=== PATIENT | male | born 1945 | race Caucasian/White ===

== ENCOUNTER 2024-11-15 05:19 | Inpatient (IN) | payer OTHER ==
[2024-11-15] VITALS (10 sets, daily range): BP systolic 88–110; BP diastolic 48–68; PULSE 69–82; RESP 16–18; TEMP 97.7; O2SAT 94–96
[~2024-11-15] VITALS: Ht 165.1 cm; Wt 58.7 kg
[2024-11-15 05:54] LABS: BASOPHILS % (AUTO) 0.7 % (0-1); EOSINOPHILS # (AUTO) 0.2 X10'3 (0-0.9); EOSINOPHILS % (AUTO) 3.6 % (0-6); HEMATOCRIT 46.2 % (42.0-52.0); HEMOGLOBIN 15.7 g/dl (14.0-17.9); LYMPHOCYTES # (AUTO) 1.4 X10'3 (1.1-4.8); LYMPHOCYTES % (AUTO) 25.9 % (21-51); MEAN CORPUSCULAR HEMOGLOBIN 30.8 PG (27.0-31.0); MEAN CORPUSCULAR VOLUME 90.7 FL (78-98); MEAN PLATELET VOLUME 7.6 FL (7.4-10.4); MONOCYTES # (AUTO) 0.8 X10'3 (0-0.9); MONOCYTES % (AUTO) 14.5 % (2-12); NEUTROPHILS % (AUTO) 55.3 % (42-75); PLATELET COUNT 228 X10'3 (140-440); RED CELL DISTRIBUTION WIDTH 14.5 % (11.5-14.5); WHITE BLOOD COUNT 5.4 X10'3 (4.5-11.0)
[2024-11-15 06:09] LABS: ALANINE AMINOTRANSFERASE 21 U/L (12-78); ALBUMIN 3.3 G/DL (3.4-5.0); ALBUMIN/GLOBULIN RATIO 0.9 (1.1-1.5); ALKALINE PHOSPHATASE 56 IU/L (46-116); ANION GAP 6 (8-16); ASPARTATE AMINO TRANSFERASE 22 U/L (10-37); BILIRUBIN,TOTAL 0.4 MG/DL (0.1-1.0); BLOOD UREA NITROGEN 15 MG/DL (7-18); BUN/CREATININE RATIO 15.3 (10.0-20.0); CALCIUM 8.6 MG/DL (8.5-10.1); CHLORIDE 105 MMOL/L (99-107); CREATININE 0.98 MG/DL (0.60-1.10); GLUCOSE 98 MG/DL (70-104); POTASSIUM 3.6 MMOL/L (3.5-5.1); SODIUM 139 MMOL/L (135-145); TOTAL CARBON DIOXIDE 28.2 MMOL/L (24-32); eCRCL 52 ML/MIN; eGFR 74 ML/MIN
[2024-11-15 06:16] LABS: PRO BRAIN NATRIURETIC PEPTIDE 121 PG/ML (0-450)
[2024-11-15] MEDS: aspirin 81mg tab.chew PO ONE (07:16)
[2024-11-15] MEDS: nitroGLYCERIN 0.4mg/hour patch TD ONE (07:17)
[2024-11-15] MEDS ORDERED: ondansetron/PF 4mg/2ml inj IV PRN (07:30)
[2024-11-15] MEDS ORDERED: magnesium sulf-water 4G/100mL 100 ML IV PRN (07:30)
[2024-11-15] MEDS ORDERED: potassium Cl 40MEQ/1/2NS 520ml 520 ML IV PRN (07:30)
[2024-11-15] MEDS ORDERED: potassium Cl 20 mEq SR tablet PO PRN ×2 (07:30)
[2024-11-15] MEDS ORDERED: magnesium Cl slow-release 64mg tablet PO PRN (07:30)
[2024-11-15] MEDS ORDERED: mag hydrox/Alum hydrox/simeth 30ml oral suspension PO PRN (07:30)
[2024-11-15] MEDS ORDERED: magnesium sulf-water 2g/50mL 50 ML IV PRN (07:30)
[2024-11-15] MEDS ORDERED: magnesium hydroxide 30ml (MOM) UD suspension PO PRN (07:30)
[2024-11-15] MEDS ORDERED: NO HOME MEDS (07:56)
[2024-11-15] MEDS: K and/or MAG REPLACEMENT MC SCH (08:00)
[2024-11-15] MEDS ORDERED: metoprolol tartrate 1mg/ml inj IV PRN (09:45)
[2024-11-15] MEDS ORDERED: nitroGLYCERIN 0.4mg SUBLingual tab SL PRN (09:45)
[2024-11-15] MEDS ORDERED: aminophylline 250mg/10ml inj. IV PRN (09:45)
[2024-11-15 11:16] LABS: HEMOGLOBIN A1C 5.3 % (4.5-6.2)
[2024-11-15] MEDS ORDERED: aminophylline 500mg/20ml vial IV PRN (11:28)
[2024-11-15] MEDS ORDERED: aminophylline 500mg/20ml vial ONE (11:29)
[2024-11-15] MEDS: regadenoson 0.4mg/5ml syringe IV PRN (11:42)
[2024-11-15] MEDS: acetaminophen 325mg tablet PO PRN (21:50)
[2024-11-16] VITALS (16 sets, daily range): BP systolic 117–137; BP diastolic 65–79; PULSE 60–75; RESP 12–18; TEMP 97.2–99.3; O2SAT 94–99
[2024-11-16 06:38] LABS: BASOPHILS % (AUTO) 0.7 % (0-1); EOSINOPHILS # (AUTO) 0.2 X10'3 (0-0.9); EOSINOPHILS % (AUTO) 4.7 % (0-6); HEMATOCRIT 44.6 % (42.0-52.0); LYMPHOCYTES # (AUTO) 1.2 X10'3 (1.1-4.8); MEAN CORPUSCULAR HEMOGLOBIN 30.5 PG (27.0-31.0); MEAN CORPUSCULAR HGB CONC 33.7 g/dL (33.0-36.5); MEAN CORPUSCULAR VOLUME 90.7 FL (78-98); MEAN PLATELET VOLUME 7.7 FL (7.4-10.4); MONOCYTES # (AUTO) 0.7 X10'3 (0-0.9); MONOCYTES % (AUTO) 13.8 % (2-12); NEUTROPHILS # (AUTO) 2.7 X10'3 (1.8-7.7); NEUTROPHILS % (AUTO) 56.8 % (42-75); PLATELET COUNT 220 X10'3 (140-440); RED BLOOD COUNT 4.92 X10'6 (4.70-6.10); WHITE BLOOD COUNT 4.8 X10'3 (4.5-11.0)
[2024-11-16 06:47] LABS: D-DIMER 0.88 MG/L FEU (0-0.50)
[2024-11-16 07:00] LABS: ALBUMIN 3.1 G/DL (3.4-5.0); ANION GAP 6 (8-16); BLOOD UREA NITROGEN 14 MG/DL (7-18); BUN/CREATININE RATIO 17.3 (10.0-20.0); CALCIUM 8.5 MG/DL (8.5-10.1); CHLORIDE 108 MMOL/L (99-107); CHOL/HDL RATIO 3.7 (0.00-4.99); CHOLESTEROL 157 MG/DL (0-200); CREATININE 0.81 MG/DL (0.60-1.10); GLUCOSE 95 MG/DL (70-104); HDL CHOLESTEROL 43 MG/DL (35-60); LDL CHOLESTEROL 101 MG/DL (50-100); POTASSIUM 4.2 MMOL/L (3.5-5.1); SODIUM 142 MMOL/L (135-145); TOTAL CARBON DIOXIDE 27.8 MMOL/L (24-32); TRIGLYCERIDES 59 MG/DL (20-135); eCRCL 63 ML/MIN; eGFR > 90 ML/MIN
[2024-11-16] MEDS: furosemide 20 MG/2 ML vial IV ONE (09:18)
[2024-11-16] MEDS ORDERED: midazolam 1 mg/ML 2ml injection ONE (15:33)
[2024-11-16] MEDS ORDERED: iohexol 350MG/ML 100ml bottle IV ONE (15:34)
[2024-11-16] MEDS ORDERED: heparin 1,000unit/ml 10ml vial 10 ML ONE (15:34)
[2024-11-16] MEDS ORDERED: verapamil 2.5 mg/ml inj IV ONE (15:34)
[2024-11-16] MEDS ORDERED: LIDOcaine 1% (10mg/ml) 2ml vial ONE (15:34)
[2024-11-16] MEDS ORDERED: fentaNYL/PF 50MCG/1 ML 2ML syringe ONE (15:34)
[2024-11-16] MEDS ORDERED: nitroGLYCERIN 500mcg/5mL D5W 5 ML IV ONE (15:35)
[2024-11-17] VITALS (11 sets, daily range): BP systolic 113–128; BP diastolic 60–78; PULSE 62–86; RESP 10–18; TEMP 97–98.1; O2SAT 0–100
[2024-11-17 06:50] LABS: ANION GAP 6 (8-16); BLOOD UREA NITROGEN 13 MG/DL (7-18); BUN/CREATININE RATIO 14.4 (10.0-20.0); CALCIUM 8.4 MG/DL (8.5-10.1); CHLORIDE 108 MMOL/L (99-107); GLUCOSE 92 MG/DL (70-104); POTASSIUM 3.9 MMOL/L (3.5-5.1); SODIUM 143 MMOL/L (135-145); TOTAL CARBON DIOXIDE 29.1 MMOL/L (24-32); eCRCL 57 ML/MIN; eGFR 82 ML/MIN
[2024-11-17 07:11] LABS: BASOPHILS % (AUTO) 0.6 % (0-1); EOSINOPHILS # (AUTO) 0.2 X10'3 (0-0.9); HEMATOCRIT 43.9 % (42.0-52.0); HEMOGLOBIN 14.8 g/dl (14.0-17.9); LYMPHOCYTES # (AUTO) 1.1 X10'3 (1.1-4.8); LYMPHOCYTES % (AUTO) 23.6 % (21-51); MEAN CORPUSCULAR HEMOGLOBIN 30.7 PG (27.0-31.0); MEAN CORPUSCULAR HGB CONC 33.8 g/dL (33.0-36.5); MEAN CORPUSCULAR VOLUME 90.7 FL (78-98); MEAN PLATELET VOLUME 7.9 FL (7.4-10.4); MONOCYTES # (AUTO) 0.6 X10'3 (0-0.9); MONOCYTES % (AUTO) 12.5 % (2-12); NEUTROPHILS # (AUTO) 2.6 X10'3 (1.8-7.7); NEUTROPHILS % (AUTO) 58.3 % (42-75); PLATELET COUNT 227 X10'3 (140-440); RED BLOOD COUNT 4.84 X10'6 (4.70-6.10); RED CELL DISTRIBUTION WIDTH 14.4 % (11.5-14.5); WHITE BLOOD COUNT 4.5 X10'3 (4.5-11.0)
[2024-11-17] MEDS ORDERED: insulin glargine (Lantus) pen - multi-dose SQ PRN (07:25)
[2024-11-17] MEDS ORDERED: Insulin Reg/NS 100units/100mL 100 ML IV SCH ×2 (07:25→07:29)
[2024-11-17] MEDS: MESSAGE TO PHARMACY IJ ONE (07:25)
[2024-11-17] MEDS ORDERED: dextrose 50%-water 50ml dispensing syringe IV PRN (07:25)
[2024-11-17] MEDS ORDERED: VANCOMYCIN 1GM 200ML H20 (PEG) 200 ML IV ONE (07:25)
[2024-11-17] MEDS: cefazolin 2gm/D5W 100mL 100 ML IV ONE (07:25)
[2024-11-17 08:10] LABS: APTT 29 SECONDS (22-32); INR 1.1 INR; PROTHROMBIN TIME 11.1 SECONDS (9.0-12.0)
[2024-11-17] MEDS: furosemide 20 MG/2 ML vial IV SCH (09:17)
[2024-11-17 12:40] LABS: ABG HCO3 20.2 mmol/L (21.0-28.0); ABG OXYGEN SATURATION 98.5 % (94.0-98.0); ABG PCO2 (T) 26.2 mmHg (35.0-48.0); ABG PH (T) 7.505 (7.350-7.450); ABG PO2 (T) 125.8 mmHg (83.0-108.0); ALLEN'S TEST POSITIVE; FCOHb 0.3 % (0.5-1.5); FHHb 1.5 % (0.0-5.0); FMetHb 0.1 % (0.0-1.5); FO2Hb 98.1 % (94.0-98.0); MODE ROOM AIR; TOTAL HEMOGLOBIN 16.4 G/dl (13.5-17.5)
[2024-11-17] MEDS: tamsulosin 0.4mg capsule PO SCH (20:07)
[2024-11-18] VITALS (25 sets, daily range): BP systolic 78–136; BP diastolic 48–73; PULSE 69–104; RESP 11–30; TEMP 96.3–97.8; O2SAT 97–100
[2024-11-18] MEDS: dextrose 5%-lactated ringers 1,000 ML IV SCH (00:21)
[2024-11-18] MEDS ORDERED: ceFAZolin 1000mg inj ONE (06:51)
[2024-11-18] MEDS ORDERED: vancomycin 1,000mg inj ONE (06:51)
[2024-11-18] MEDS ORDERED: epiNEPHrine 1 mg/ml inj ONE (06:51)
[2024-11-18 07:28] LABS: BASOPHILS % (AUTO) 0.5 % (0-1); EOSINOPHILS # (AUTO) 0.2 X10'3 (0-0.9); EOSINOPHILS % (AUTO) 4.6 % (0-6); HEMATOCRIT 44.6 % (42.0-52.0); LYMPHOCYTES # (AUTO) 1.3 X10'3 (1.1-4.8); LYMPHOCYTES % (AUTO) 26.5 % (21-51); MEAN CORPUSCULAR HEMOGLOBIN 30.7 PG (27.0-31.0); MEAN CORPUSCULAR HGB CONC 33.7 g/dL (33.0-36.5); MEAN PLATELET VOLUME 7.9 FL (7.4-10.4); MONOCYTES # (AUTO) 0.6 X10'3 (0-0.9); MONOCYTES % (AUTO) 11.4 % (2-12); NEUTROPHILS # (AUTO) 2.8 X10'3 (1.8-7.7); PLATELET COUNT 213 X10'3 (140-440); RED CELL DISTRIBUTION WIDTH 14.6 % (11.5-14.5)
[2024-11-18 07:56] LABS: ANION GAP 7 (8-16); BLOOD UREA NITROGEN 12 MG/DL (7-18); CALCIUM 8.3 MG/DL (8.5-10.1); CHLORIDE 106 MMOL/L (99-107); GLUCOSE 106 MG/DL (70-104); POTASSIUM 3.7 MMOL/L (3.5-5.1); SODIUM 140 MMOL/L (135-145); TOTAL CARBON DIOXIDE 27.1 MMOL/L (24-32); eCRCL 61 ML/MIN; eGFR > 90 ML/MIN
[2024-11-18] MEDS: mupirocin 2% ointment 22GM NS SCH (10:03)
[2024-11-18] MEDS: famotidine 20mg tablet PO ONE (10:03)
[2024-11-18] MEDS: gabapentin 400mg capsule PO ONE (10:04)
[2024-11-18] MEDS ORDERED: MIDAZolam 1 MG/ML 5ML VIAL ONE (12:23)
[2024-11-18] MEDS ORDERED: SUfentanil 50mcg/ml 1ml amp IV ONE (12:23)
[2024-11-18] MEDS ORDERED: propofol inj 20 ML IV ONE (12:25)
[2024-11-18] MEDS ORDERED: rocuronium 10mg/ml inj IV ONE (12:26)
[2024-11-18] MEDS: LORazepam 2 mg/ml vial IV ONE (12:30)
[2024-11-18] MEDS ORDERED: sevoflurane 250ml liquid IH ONE (12:33)
[2024-11-18 13:13] LABS: ABG BASE EXCESS -0.3 mmol/L (-2.0-3.0); ABG HCO3 22.6 mmol/L (21.0-28.0); ABG OXYGEN SATURATION 99.4 % (94.0-98.0); ABG PCO2 32.1 mmHg (35.0-48.0); ABG PH 7.465 (7.350-7.450); ABG PO2 281.3 mmHg (83.0-108.0); CL (ABG) 105 mmol/L (98-107); FHHb 0.6 % (0.0-5.0); FMetHb 0.1 % (0.0-1.5); FO2Hb 99.3 % (94.0-98.0); GLUCOSE (ABG) 94 mg/dl (65-95); IONIZED CA (ABG) 1.15 mmol/L (1.15-1.33); TOTAL HEMOGLOBIN 13.9 G/dl (13.5-17.5)
[2024-11-18 13:28] LABS: ABG BASE EXCESS VENOUS -0.7 mmol/L (-2.0-3.0); ABG HCO3 VENOUS 24.5 mmol/L (22.0-29.0); ABG OXYGEN SATURATION VENOUS 89.2 % (60.0-85.0); ABG PCO2 VENOUS 42.1 mmHg (38.0-54.0); ABG PH (VENOUS) 7.382 (7.320-7.430); ABG PO2 VENOUS 52.2 mmHg (23.0-48.0); CL (ABG) 105 mmol/L (98-107); FCOHb VENOUS 0.4 % (0.5-1.5); FHHb VENOUS 10.8 %; FO2Hb VENOUS 88.8 % (0-80.0); GLUCOSE (ABG) 96 mg/dl (65-95); IONIZED CA (ABG) 1.12 mmol/L (1.15-1.33); K (ABG) 3.9 mmol/L (3.40-4.50); TOTAL HEMOGLOBIN 13.1 G/dl (13.5-17.5)
[2024-11-18 13:44] LABS: ABG BASE EXCESS 0.2 mmol/L (-2.0-3.0); ABG HCO3 22.7 mmol/L (21.0-28.0); ABG PCO2 29.2 mmHg (35.0-48.0); ABG PH 7.508 (7.350-7.450); ABG PO2 248.9 mmHg (83.0-108.0); CL (ABG) 103 mmol/L (98-107); FCOHb 0.3 % (0.5-1.5); FMetHb 0.3 % (0.0-1.5); FO2Hb 98.4 % (94.0-98.0); GLUCOSE (ABG) 90 mg/dl (65-95); IONIZED CA (ABG) 1.01 mmol/L (1.15-1.33); K (ABG) 5.6 mmol/L (3.40-4.50); TOTAL HEMOGLOBIN 9.8 G/dl (13.5-17.5)
[2024-11-18 13:48] LABS: ABG BASE EXCESS VENOUS 0.3 mmol/L (-2.0-3.0); ABG HCO3 VENOUS 23.5 mmol/L (22.0-29.0); ABG OXYGEN SATURATION VENOUS 84.1 % (60.0-85.0); ABG PCO2 VENOUS 32.8 mmHg (38.0-54.0); ABG PH (VENOUS) 7.473 (7.320-7.430); ABG PO2 VENOUS 40.8 mmHg (23.0-48.0); CL (ABG) 102 mmol/L (98-107); FCOHb VENOUS 0.1 % (0.5-1.5); FHHb VENOUS 15.8 %; FMetHb VENOUS 0.3 % (0.5-1.5); FO2Hb VENOUS 83.8 % (0-80.0); GLUCOSE (ABG) 97 mg/dl (65-95); IONIZED CA (ABG) 1.03 mmol/L (1.15-1.33); K (ABG) 5.3 mmol/L (3.40-4.50); TOTAL HEMOGLOBIN 10.2 G/dl (13.5-17.5)
[2024-11-18] MEDS: ceFAZolin 1000mg inj IR ONE (14:04)
[2024-11-18] MEDS ORDERED: albumin (Human) 5% 250ml 250 ML IV ONE ×2 (14:30→14:56)
[2024-11-18 14:39] LABS: ABG HCO3 VENOUS 24.2 mmol/L (22.0-29.0); ABG OXYGEN SATURATION VENOUS 87.3 % (60.0-85.0); ABG PCO2 VENOUS 37.6 mmHg (38.0-54.0); ABG PH (VENOUS) 7.427 (7.320-7.430); CL (ABG) 104 mmol/L (98-107); FCOHb VENOUS 0.3 % (0.5-1.5); FHHb VENOUS 12.6 %; FMetHb VENOUS 0.3 % (0.5-1.5); FO2Hb VENOUS 86.8 % (0-80.0); GLUCOSE (ABG) 114 mg/dl (65-95); K (ABG) 4.6 mmol/L (3.40-4.50); TOTAL HEMOGLOBIN 10.4 G/dl (13.5-17.5)
[2024-11-18 14:42] LABS: ACTIVATED CLOTTING TIME 122 SEC (101-148)
[2024-11-18] MEDS: MESSAGE TO NURSING PO ONE ×5 (14:42)
[2024-11-18] MEDS: ceFAZolin 2gm in dextrose, iso 50 ML IV ONE ×2 (14:45→14:46)
[2024-11-18] MEDS: vancomycin/NS 1 GM ADD-VANTAGE 250 ML IV ONE ×2 (14:45→14:46)
[2024-11-18] MEDS ORDERED: gelatin sponge, absorbable (Gelfoam 100) sponge TP ONE (15:04)
[2024-11-18 15:07] LABS: BASOPHILS % (AUTO) 0.1 % (0-1); EOSINOPHILS # (AUTO) 0.2 X10'3 (0-0.9); HEMATOCRIT 31.3 % (42.0-52.0); HEMOGLOBIN 10.5 g/dl (14.0-17.9); LYMPHOCYTES # (AUTO) 1.5 X10'3 (1.1-4.8); LYMPHOCYTES % (AUTO) 18.8 % (21-51); MEAN CORPUSCULAR HEMOGLOBIN 30.5 PG (27.0-31.0); MEAN CORPUSCULAR HGB CONC 33.6 g/dL (33.0-36.5); MEAN CORPUSCULAR VOLUME 90.9 FL (78-98); MEAN PLATELET VOLUME 7.5 FL (7.4-10.4); MONOCYTES # (AUTO) 0.2 X10'3 (0-0.9); MONOCYTES % (AUTO) 2.7 % (2-12); NEUTROPHILS % (AUTO) 76.4 % (42-75); RED BLOOD COUNT 3.44 X10'6 (4.70-6.10); RED CELL DISTRIBUTION WIDTH 14.4 % (11.5-14.5); WHITE BLOOD COUNT 7.8 X10'3 (4.5-11.0)
[2024-11-18] MEDS ORDERED: metoclopramide 5 mg/ml inj IV PRN (15:15)
[2024-11-18] MEDS ORDERED: sodium phosphate inj. 30 MMOL in dextrose 5%-water 250 ML IV PRN (15:15)
[2024-11-18] MEDS ORDERED: potassium Cl 20 mEq SR tablet PO PRN (15:15)
[2024-11-18] MEDS ORDERED: niCARDipine-NS 40mg/200ml IVPB 200 ML IV PRN (15:15)
[2024-11-18] MEDS ORDERED: potassium CL 10mEq/100ml bag 100 ML IV PRN (15:15)
[2024-11-18] MEDS ORDERED: ondansetron/PF 4mg/2ml inj IV PRN (15:15)
[2024-11-18] MEDS ORDERED: potassium Cl 40MEQ/270ML bag 250 ML IV PRN (15:15)
[2024-11-18] MEDS ORDERED: potassium Cl 40MEQ/1/2NS 520ml 520 ML IV PRN (15:15)
[2024-11-18] MEDS ORDERED: insulin glargine (Lantus) pen - multi-dose SQ PRN (15:15)
[2024-11-18] MEDS ORDERED: mineral oil 133ml enema RC PRN (15:15)
[2024-11-18] MEDS ORDERED: acetaminophen 325mg tablet PO PRN (15:15)
[2024-11-18] MEDS ORDERED: bisacodyl 10mg suppository rectal RC PRN (15:15)
[2024-11-18] MEDS ORDERED: magnesium sulf-water 4G/100mL 100 ML IV PRN (15:15)
[2024-11-18] MEDS ORDERED: dextrose 50%-water 50ml dispensing syringe IV PRN (15:15)
[2024-11-18 15:18] LABS: PLATELET COUNT 27 X10'3 (140-440)
[2024-11-18 15:26] LABS: APTT 43 SECONDS (22-32); FIBRINOGEN 181 MG/DL (177-424)
[2024-11-18] MEDS: albumin (Human) 5% 250ml 250 ML IV PRN (15:30)
[2024-11-18 15:52] LABS: ABG BASE EXCESS -2.9 mmol/L (-2.0-3.0); ABG HCO3 20.5 mmol/L (21.0-28.0); ABG OXYGEN SATURATION 99.6 % (94.0-98.0); ABG PCO2 (T) 30.2 mmHg (35.0-48.0); ABG PH (T) 7.444 (7.350-7.450); ABG PO2 (T) 234.6 mmHg (83.0-108.0); FCOHb 0.4 % (0.5-1.5); FHHb 0.4 % (0.0-5.0); FLOW 45 L/min; FMetHb 0.3 % (0.0-1.5); FO2Hb 98.9 % (94.0-98.0); MODE VENT - SIMV; PATIENT TEMPERATURE 35.9; PEEP 5 cm H2O; RESPIRATORY RATE 12 b/min; TOTAL HEMOGLOBIN 13.3 G/dl (13.5-17.5)
[2024-11-18 15:56] LABS: INR 1.5 INR; PROTHROMBIN TIME 14.8 SECONDS (9.0-12.0)
[2024-11-18 16:01] LABS: ALANINE AMINOTRANSFERASE 11 U/L (12-78); ALBUMIN 3.1 G/DL (3.4-5.0); ALBUMIN/GLOBULIN RATIO 1.8 (1.1-1.5); ALKALINE PHOSPHATASE 27 IU/L (46-116); ANION GAP 11 (8-16); ASPARTATE AMINO TRANSFERASE 33 U/L (10-37); BILIRUBIN,TOTAL 0.9 MG/DL (0.1-1.0); BLOOD UREA NITROGEN 8 MG/DL (7-18); BUN/CREATININE RATIO 15.7 (10.0-20.0); CALCIUM 7.9 MG/DL (8.5-10.1); CHLORIDE 108 MMOL/L (99-107); CREATININE 0.51 MG/DL (0.60-1.10); GLUCOSE 125 MG/DL (70-104); MAGNESIUM 3.3 MG/DL (1.5-2.4); PHOSPHORUS 1.6 MG/DL (2.3-4.5); SODIUM 141 MMOL/L (135-145); TOTAL CARBON DIOXIDE 21.7 MMOL/L (24-32); TOTAL PROTEIN 4.8 G/DL (6.4-8.2); eCRCL 96 ML/MIN; eGFR > 90 ML/MIN
[2024-11-18 16:07] LABS: POTASSIUM 4.3 MMOL/L (3.5-5.1)
[2024-11-18] MEDS: Insulin Reg/NS 100units/100mL 100 ML IV SCH (16:17)
[2024-11-18] MEDS: sodium chloride 0.45% 1,000 ML IV SCH (16:23)
[2024-11-18] MEDS: potassium Cl 20mEq/100mL bag 100 ML IV PRN (16:37)
[2024-11-18] MEDS: ceFAZolin/D5W- 1GM premix 50 ML IV SCH (17:05)
[2024-11-18] MEDS: morphine 4 MG/ML inj SYRINge IV PRN (17:22)
[2024-11-18] MEDS: sodium phosphate inj. 15 MMOL in dextrose 5%-water 250 ML IV PRN (17:43)
[2024-11-18] MEDS ORDERED: VANCOMYCIN 1GM 200ML H20 (PEG) 200 ML IV SCH (20:00)
[2024-11-18] MEDS: sennosides/docusate sodium tablet PO SCH (20:00)
[2024-11-18] MEDS: NORepinephrine 8mg/ 250ml NS 250 ML IV PRN (20:43)
[2024-11-18] MEDS: atorvastatin 10mg tablet PO SCH (21:00)
[2024-11-18] MEDS: mupirocin 2% nasal ointment 1gm UD NS SCH (22:14)
[2024-11-18] MEDS: vancomycin/NS 1 GM ADD-VANTAGE 250 ML IV SCH (22:14)
[2024-11-18 22:41] LABS: BASOPHILS % (AUTO) 0.1 % (0-1); EOSINOPHILS % (AUTO) 0.1 % (0-6); HEMATOCRIT 28.8 % (42.0-52.0); HEMOGLOBIN 9.9 g/dl (14.0-17.9); LYMPHOCYTES # (AUTO) 0.2 X10'3 (1.1-4.8); LYMPHOCYTES % (AUTO) 2.2 % (21-51); MEAN CORPUSCULAR HGB CONC 34.4 g/dL (33.0-36.5); MEAN CORPUSCULAR VOLUME 90.3 FL (78-98); MEAN PLATELET VOLUME 7.4 FL (7.4-10.4); MONOCYTES # (AUTO) 0.4 X10'3 (0-0.9); MONOCYTES % (AUTO) 3.7 % (2-12); NEUTROPHILS % (AUTO) 93.9 % (42-75); PLATELET COUNT 163 X10'3 (140-440); RED BLOOD COUNT 3.19 X10'6 (4.70-6.10); RED CELL DISTRIBUTION WIDTH 14.5 % (11.5-14.5); WHITE BLOOD COUNT 9.6 X10'3 (4.5-11.0)
[2024-11-18 23:51] LABS: ANION GAP 12 (8-16); BLOOD UREA NITROGEN 10 MG/DL (7-18); BUN/CREATININE RATIO 10.9 (10.0-20.0); CALCIUM 7.6 MG/DL (8.5-10.1); CHLORIDE 109 MMOL/L (99-107); CREATININE 0.92 MG/DL (0.60-1.10); GLUCOSE 135 MG/DL (70-104); MAGNESIUM 2.5 MG/DL (1.5-2.4); PHOSPHORUS 2.3 MG/DL (2.3-4.5); POTASSIUM 3.8 MMOL/L (3.5-5.1); SODIUM 144 MMOL/L (135-145); TOTAL CARBON DIOXIDE 22.6 MMOL/L (24-32); eCRCL 53 ML/MIN; eGFR 80 ML/MIN
[2024-11-19] VITALS (25 sets, daily range): BP systolic 102–140; BP diastolic 58–70; PULSE 77–93; RESP 12–24; O2SAT 85–100
[2024-11-19 00:30] LABS: ABG BASE EXCESS -2.8 mmol/L (-2.0-3.0); ABG HCO3 21.5 mmol/L (21.0-28.0); ABG OXYGEN SATURATION 98.2 % (94.0-98.0); ABG PCO2 (T) 35.2 mmHg (35.0-48.0); ABG PH (T) 7.403 (7.350-7.450); ABG PO2 (T) 109.5 mmHg (83.0-108.0); FCOHb 0.1 % (0.5-1.5); FHHb 1.8 % (0.0-5.0); FMetHb 0.3 % (0.0-1.5); FO2Hb 97.8 % (94.0-98.0); MODE VENT - CPAP; PATIENT TEMPERATURE 36.8; PEEP 5 cm H2O; TOTAL HEMOGLOBIN 10.4 G/dl (13.5-17.5)
[2024-11-19] MEDS: morphine 2 MG/ML inj. syringe IV PRN (00:56)
[2024-11-19 04:42] LABS: BASOPHILS % (AUTO) 0 % (0-1); EOSINOPHILS % (AUTO) 0.1 % (0-6); HEMATOCRIT 28.5 % (42.0-52.0); HEMOGLOBIN 9.7 g/dl (14.0-17.9); LYMPHOCYTES # (AUTO) 0.3 X10'3 (1.1-4.8); LYMPHOCYTES % (AUTO) 2.5 % (21-51); MEAN CORPUSCULAR HEMOGLOBIN 30.9 PG (27.0-31.0); MEAN CORPUSCULAR HGB CONC 34.1 g/dL (33.0-36.5); MEAN CORPUSCULAR VOLUME 90.7 FL (78-98); MEAN PLATELET VOLUME 7.5 FL (7.4-10.4); MONOCYTES # (AUTO) 0.4 X10'3 (0-0.9); MONOCYTES % (AUTO) 3.6 % (2-12); NEUTROPHILS # (AUTO) 10.1 X10'3 (1.8-7.7); NEUTROPHILS % (AUTO) 93.8 % (42-75); PLATELET COUNT 171 X10'3 (140-440); RED BLOOD COUNT 3.14 X10'6 (4.70-6.10); WHITE BLOOD COUNT 10.7 X10'3 (4.5-11.0)
[2024-11-19 04:53] LABS: ALANINE AMINOTRANSFERASE 23 U/L (12-78); ALBUMIN 3.9 G/DL (3.4-5.0); ALBUMIN/GLOBULIN RATIO 2.3 (1.1-1.5); ALKALINE PHOSPHATASE 25 IU/L (46-116); ANION GAP 3 (8-16); ASPARTATE AMINO TRANSFERASE 44 U/L (10-37); BILIRUBIN,TOTAL 0.5 MG/DL (0.1-1.0); BLOOD UREA NITROGEN 10 MG/DL (7-18); BUN/CREATININE RATIO 13.2 (10.0-20.0); CALCIUM 7.6 MG/DL (8.5-10.1); CHLORIDE 114 MMOL/L (99-107); CREATININE 0.76 MG/DL (0.60-1.10); GLUCOSE 106 MG/DL (70-104); MAGNESIUM 2.5 MG/DL (1.5-2.4); PHOSPHORUS 2.9 MG/DL (2.3-4.5); POTASSIUM 4.7 MMOL/L (3.5-5.1); SODIUM 144 MMOL/L (135-145); TOTAL CARBON DIOXIDE 26.7 MMOL/L (24-32); TOTAL PROTEIN 5.6 G/DL (6.4-8.2); eCRCL 64 ML/MIN; eGFR > 90 ML/MIN
[2024-11-19] MEDS: metoprolol tartrate 12.5mg (1/2 tablet) PO SCH (08:00)
[2024-11-19] MEDS: aspirin 81mg tab.chew PO SCH (08:38)
[2024-11-19] MEDS ORDERED: DEXTROSE 15 GM of carb/4 tabs (each vial/BOTTLE has 4 tablets) PO PRN ×2 (12:25)
[2024-11-19] MEDS ORDERED: dextrose 50%-water 50ml dispensing syringe IV PRN ×2 (12:25)
[2024-11-19] MEDS ORDERED: glucagon, human recombinant 1mg kit SUBCUT PRN (12:25)
[2024-11-19] MEDS: acetaminophen 325mg tablet PO PRN (17:18)
[2024-11-19] MEDS: INSULIN LISPRO 100 UNIT/ML INSULN.PEN MULTI-DOSE SQ SCH (18:41)
[2024-11-19] MEDS: HYDROcodone/acetaminophen 10/325mg tab PO PRN (20:04)
[2024-11-20] VITALS (22 sets, daily range): BP systolic 104–131; BP diastolic 55–76; PULSE 66–85; RESP 12–18; TEMP 97.6; O2SAT 93–98
[2024-11-20 02:53] LABS: BASOPHILS % (AUTO) 0.1 % (0-1); EOSINOPHILS % (AUTO) 0 % (0-6); HEMATOCRIT 27.5 % (42.0-52.0); HEMOGLOBIN 9.2 g/dl (14.0-17.9); LYMPHOCYTES # (AUTO) 0.7 X10'3 (1.1-4.8); LYMPHOCYTES % (AUTO) 4.2 % (21-51); MEAN CORPUSCULAR HEMOGLOBIN 30.6 PG (27.0-31.0); MEAN CORPUSCULAR HGB CONC 33.4 g/dL (33.0-36.5); MEAN CORPUSCULAR VOLUME 91.4 FL (78-98); MEAN PLATELET VOLUME 7.7 FL (7.4-10.4); MONOCYTES % (AUTO) 6.5 % (2-12); NEUTROPHILS # (AUTO) 14.2 X10'3 (1.8-7.7); NEUTROPHILS % (AUTO) 89.2 % (42-75); PLATELET COUNT 167 X10'3 (140-440); RED CELL DISTRIBUTION WIDTH 14.5 % (11.5-14.5)
[2024-11-20 03:01] LABS: ALANINE AMINOTRANSFERASE 32 U/L (12-78); ALBUMIN 3.2 G/DL (3.4-5.0); ALBUMIN/GLOBULIN RATIO 1.5 (1.1-1.5); ALKALINE PHOSPHATASE 30 IU/L (46-116); ANION GAP 3 (8-16); ASPARTATE AMINO TRANSFERASE 42 U/L (10-37); BILIRUBIN,TOTAL 0.3 MG/DL (0.1-1.0); BLOOD UREA NITROGEN 20 MG/DL (7-18); BUN/CREATININE RATIO 25.3 (10.0-20.0); CALCIUM 7.9 MG/DL (8.5-10.1); CHLORIDE 107 MMOL/L (99-107); CREATININE 0.79 MG/DL (0.60-1.10); GLUCOSE 139 MG/DL (70-104); MAGNESIUM 2.1 MG/DL (1.5-2.4); PHOSPHORUS 3.2 MG/DL (2.3-4.5); POTASSIUM 5.2 MMOL/L (3.5-5.1); SODIUM 136 MMOL/L (135-145); TOTAL PROTEIN 5.3 G/DL (6.4-8.2); eCRCL 68 ML/MIN; eGFR > 90 ML/MIN
[2024-11-20] MEDS: magnesium sulf-water 2g/50mL 50 ML IV PRN (03:52)
[2024-11-20] MEDS: pantoprazole 40mg Tablet.DR PO SCH (06:32)
[2024-11-20] MEDS: furosemide 20 MG/2 ML vial IV ONE (12:55)
[2024-11-20] MEDS: magnesium hydroxide 30ml (MOM) UD suspension PO PRN (19:16)
[2024-11-20] MEDS: heparin, porcine 5000 units/ml vial SQ SCH (19:16)
[2024-11-20] MEDS: HYDROcodone/acetaminophen 10/325mg tab PO PRN (23:22)
[2024-11-21] VITALS (8 sets, daily range): BP systolic 90–109; BP diastolic 56–71; PULSE 68–84; RESP 12–18; TEMP 97.3–98.6; O2SAT 84–97
[2024-11-21 06:56] LABS: BASOPHILS % (AUTO) 0.1 % (0-1); EOSINOPHILS % (AUTO) 0.2 % (0-6); HEMATOCRIT 29.9 % (42.0-52.0); HEMOGLOBIN 10.1 g/dl (14.0-17.9); LYMPHOCYTES # (AUTO) 1.3 X10'3 (1.1-4.8); MEAN CORPUSCULAR HEMOGLOBIN 30.6 PG (27.0-31.0); MEAN CORPUSCULAR HGB CONC 33.7 g/dL (33.0-36.5); MEAN CORPUSCULAR VOLUME 90.9 FL (78-98); MEAN PLATELET VOLUME 7.9 FL (7.4-10.4); MONOCYTES # (AUTO) 1.2 X10'3 (0-0.9); MONOCYTES % (AUTO) 9.8 % (2-12); NEUTROPHILS # (AUTO) 10.1 X10'3 (1.8-7.7); NEUTROPHILS % (AUTO) 79.9 % (42-75); PLATELET COUNT 199 X10'3 (140-440); RED BLOOD COUNT 3.28 X10'6 (4.70-6.10); RED CELL DISTRIBUTION WIDTH 14.4 % (11.5-14.5); WHITE BLOOD COUNT 12.7 X10'3 (4.5-11.0)
[2024-11-21 07:29] LABS: ANION GAP 5 (8-16); BILIRUBIN,TOTAL 0.6 MG/DL (0.1-1.0); BLOOD UREA NITROGEN 19 MG/DL (7-18); BUN/CREATININE RATIO 24.1 (10.0-20.0); CALCIUM 8.1 MG/DL (8.5-10.1); CHLORIDE 105 MMOL/L (99-107); CREATININE 0.79 MG/DL (0.60-1.10); GLUCOSE 105 MG/DL (70-104); MAGNESIUM 2.2 MG/DL (1.5-2.4); PHOSPHORUS 2.2 MG/DL (2.3-4.5); POTASSIUM 4.3 MMOL/L (3.5-5.1); SODIUM 137 MMOL/L (135-145); TOTAL CARBON DIOXIDE 27.4 MMOL/L (24-32); eCRCL 68 ML/MIN; eGFR > 90 ML/MIN
[2024-11-21 07:30] LABS: ALANINE AMINOTRANSFERASE 26 U/L (12-78); ALBUMIN 3.2 G/DL (3.4-5.0); ALBUMIN/GLOBULIN RATIO 1.2 (1.1-1.5); ALKALINE PHOSPHATASE 34 IU/L (46-116); ASPARTATE AMINO TRANSFERASE 28 U/L (10-37); TOTAL PROTEIN 5.8 G/DL (6.4-8.2)
[2024-11-21] MEDS ORDERED: ASPI81TA53 PO (09:40)
[2024-11-21] MEDS ORDERED: HYDR-3972 PO (09:40)
[2024-11-21] MEDS ORDERED: LOP12.5T PO ×2 (09:40→18:45)
[2024-11-21] MEDS: Neutra Phos packet PO PRN (23:13)
[2024-11-22 02:31] VITALS: BP 98/59; PULSE 82; RESP 16; TEMP 98.8; O2SAT 94
[2024-11-22 06:00] VITALS: BP 99/63; PULSE 78; RESP 14; TEMP 97.9; O2SAT 97
[2024-11-22 07:04] LABS: BASOPHILS % (AUTO) 0.2 % (0-1); EOSINOPHILS # (AUTO) 0.1 X10'3 (0-0.9); EOSINOPHILS % (AUTO) 1.5 % (0-6); HEMATOCRIT 31.2 % (42.0-52.0); HEMOGLOBIN 10.5 g/dl (14.0-17.9); LYMPHOCYTES # (AUTO) 1.3 X10'3 (1.1-4.8); MEAN CORPUSCULAR HEMOGLOBIN 30.8 PG (27.0-31.0); MEAN CORPUSCULAR HGB CONC 33.7 g/dL (33.0-36.5); MEAN CORPUSCULAR VOLUME 91.5 FL (78-98); MEAN PLATELET VOLUME 7.7 FL (7.4-10.4); MONOCYTES # (AUTO) 0.8 X10'3 (0-0.9); MONOCYTES % (AUTO) 9.6 % (2-12); NEUTROPHILS # (AUTO) 6.2 X10'3 (1.8-7.7); NEUTROPHILS % (AUTO) 73.7 % (42-75); PLATELET COUNT 233 X10'3 (140-440); RED BLOOD COUNT 3.41 X10'6 (4.70-6.10); RED CELL DISTRIBUTION WIDTH 14.1 % (11.5-14.5); WHITE BLOOD COUNT 8.4 X10'3 (4.5-11.0)
[2024-11-22 07:43] LABS: ALANINE AMINOTRANSFERASE 20 U/L (12-78); ALBUMIN 2.7 G/DL (3.4-5.0); ALKALINE PHOSPHATASE 33 IU/L (46-116); ANION GAP 7 (8-16); ASPARTATE AMINO TRANSFERASE 20 U/L (10-37); BILIRUBIN,TOTAL 0.6 MG/DL (0.1-1.0); BLOOD UREA NITROGEN 14 MG/DL (7-18); BUN/CREATININE RATIO 22.2 (10.0-20.0); CALCIUM 8.2 MG/DL (8.5-10.1); CHLORIDE 106 MMOL/L (99-107); CREATININE 0.63 MG/DL (0.60-1.10); GLUCOSE 87 MG/DL (70-104); MAGNESIUM 2.1 MG/DL (1.5-2.4); PHOSPHORUS 2.7 MG/DL (2.3-4.5); SODIUM 137 MMOL/L (135-145); TOTAL CARBON DIOXIDE 23.6 MMOL/L (24-32); TOTAL PROTEIN 5.4 G/DL (6.4-8.2); eCRCL 84 ML/MIN; eGFR > 90 ML/MIN
[2024-11-22 08:00] VITALS: RESP 12; O2SAT 92
[2024-11-22 14:00] VITALS: BP 98/58; PULSE 88; RESP 15; TEMP 97.9; O2SAT 95
== END 2024-11-22 16:05 | disposition home or self-care (01) | DRG 216 ==
LOC: ER 05:20 → ED HOLD 07:32 → PCU 3S 14:06 → CICU 2S 11-18 15:38 → PCU 3S 11-20 20:10
PROVIDERS: ADMIT Internal Medicine; ATTEND Internal Medicine
PROC: 4A02XM4 Measurement of Cardiac Total Activity, External Approach (ICD-10-PCS; 2024-11-15)
PROC: 3E033HZ Introduction of Radioactive Substance into Peripheral Vein, Percutaneous Approach (ICD-10-PCS; 2024-11-15)
PROC: 4A023N7 Measurement of Cardiac Sampling and Pressure, Left Heart, Percutaneous Approach (ICD-10-PCS; principal; 2024-11-16)
PROC: B2111ZZ Fluoroscopy of Multiple Coronary Arteries using Low Osmolar Contrast (ICD-10-PCS; 2024-11-16)
PROC: B2151ZZ Fluoroscopy of Left Heart using Low Osmolar Contrast (ICD-10-PCS; 2024-11-16)
PROC: 02UG0JZ Supplement Mitral Valve with Synthetic Substitute, Open Approach (ICD-10-PCS; 2024-11-18)
PROC: 02L70CK Occlusion of Left Atrial Appendage with Extraluminal Device, Open Approach (ICD-10-PCS; 2024-11-18)
PROC: 5A1221Z Performance of Cardiac Output, Continuous (ICD-10-PCS; 2024-11-18)
PROC: B24BZZ4 Ultrasonography of Heart with Aorta, Transesophageal (ICD-10-PCS; 2024-11-18)
PROC: 30233N1 Transfusion of Nonautologous Red Blood Cells into Peripheral Vein, Percutaneous Approach (ICD-10-PCS; 2024-11-18)
PROC: 02BG0ZZ Excision of Mitral Valve, Open Approach (ICD-10-PCS; 2024-11-18)
DX: I34.0 Nonrheumatic mitral (valve) insufficiency (principal); I50.33 Acute on chronic diastolic (congestive) heart failure; I25.110 Atherosclerotic heart disease of native coronary artery with unstable angina pectoris; I34.1 Nonrheumatic mitral (valve) prolapse; E78.5 Hyperlipidemia, unspecified
CPT/HCPCS: 36415; 36430; 36600; 71045; 71046; 76376; 78452; 80048; 80053; 80061; 82330; 82435; 82803; 82947; 82948; 83036; 83735; 83880; 84100; 84132; 84295; 84484; 85018; 85025; 85347; 85379; 85384; 85610; 85730; 86885; 86900; 86901; 86920; 87081; 88300; 93005; 93017; 93306; 93308; 93312; 93325; 93458; 93880; 94002; 94003; 94010; 94760; 97116; 97161; 97530; 99152; 99285; A4615; A4618; A5200; A6209; A6212; A6213; A6258; A6449; A7000; A7048; A9500; C1751; C1894; G0378; J0171; J0280; J0690; J1644; J1815; J1940; J2003; J2060; J2150; J2250; J2270; J2704; J2720; J2785; J2919; J3010; J3370; J3480; J3490; J7030; J7040; J7050; J7060; J7120; J7121; P9035; P9045; P9047; Q9967